=== PATIENT | female | born 1980 | race Caucasian/White ===

== ENCOUNTER → 2016-10-29 | Outpatient (CLI) | payer OTHER ==
[~2016-10-29] MED LIST: AMLO-114 PO; HYDR25TA5 PO; LEVO25TA5 PO; LISI40TA PO; METH500T37 PO; METO25TA56 PO; METO50TA16 PO; NORE-38 PO; OMEP40CA PO; OXYC-57 PO; RANI300T2 PO; TRIA0.1L TOP
--- NOTE | 2016-10-29 11:26 | DIAGNOSTIC IMAGING REPORT ---
ULTRASOUND OF THE CAROTID ARTERIES CLINICAL HISTORY: Pulsatile tinnitus. Headache. Hypertension. COMPARISON STUDY: No priors. TECHNIQUE: Real-time, grayscale, and color Doppler sonography of the carotid arteries is performed. Images are reviewed in the transverse and longitudinal planes. FINDINGS: The carotid arteries are patent bilaterally and demonstrate antegrade flow. There is no significant atherosclerotic plaque identified. Normal doppler arterial waveforms are seen throughout. Velocity measurements are listed below. Common carotid peak systolic velocity (cm/sec): RIGHT: 88 LEFT: 104 ICA proximal peak systolic velocity (cm/sec): RIGHT: 63 LEFT: 89 ICA mid peak systolic velocity (cm/sec): RIGHT: 94 LEFT: 52 ICA distal peak systolic velocity (cm/sec): RIGHT: 59 LEFT: 66 ICA/CC peak systolic ratio: RIGHT: 0.9 LEFT: 0.9 Antegrade flow was shown in the vertebral arteries. The external carotid arteries are patent. IMPRESSION: 1. There is no sonographic evidence of hemodynamically significant stenosis in the right or left carotid arterial system. 2. Antegrade flow is shown in the vertebral arteries. Electronically signed by: Jos Albrecht M.D. 10/29/2016 11:25 AM Dictated Date/Time: 10/29/2016 11:23 AM
== END | disposition home or self-care (01) ==
LOC: C.ULTR 10:30
PROVIDERS: ATTEND Family Medicine
DX: G43.909 Migraine, unspecified, not intractable, without status migrainosus (principal); H93.A9 Pulsatile tinnitus, unspecified ear; I10 Essential (primary) hypertension

== ENCOUNTER → 2016-12-03 | Outpatient (CLI) | payer OTHER ==
--- NOTE | 2016-12-13 08:34 | CODING QUERY NO DIAGNOSIS ---
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 Please assist us with providing a diagnosis/symptom for the test(s) below: A diagnosis/symptom was not documented on your Order. A valid diagnosis/symptom is required to bill all insurances. Please remember that we are unable to code a diagnosis of rule out, probable, possible, questionable, or suspected. DOS 12/03/16 Tests that require a diagnosis: * MAGNESIUM DIAGNOSIS: Provider Signature: Date: Thank you Yuliya Phan [employer] Once completed, please kindly fax back to [phone] For questions please call [phone]
== END | disposition home or self-care (01) ==
LOC: C.LAB 10:57
PROVIDERS: ATTEND Family Medicine
DX: I10 Essential (primary) hypertension (principal)

== ENCOUNTER → 2016-12-25 | Day surgery (SDC) | payer OTHER ==
[2016-12-03 11:04] VITALS: BMI 44.0
--- NOTE | 2016-12-03 11:31 | PAT Medication Instructions ---
Service Date Dec 03, 2016. Current Home Medication List Amlodipine (Norvasc), 10 MG PO QAM Ethinyl Estradiol/Norethindr (Loestrin 1.5/30-21 1.5-30 mg-Mcg), 1 TAB PO QAM Hydrochlorothiazide (Hydrochlorothiazide), 1 TAB PO QAM Levothyroxine Sodium (Levothyroxine Sodium), 1 TAB PO QAM Lisinopril (Zestril), 40 MG PO QAM Omeprazole (Prilosec), 40 MG PO QAM Ranitidine Hcl (Zantac), 1 TAB PO HS Triamcinolone Acet 0.1% (Kenelog 0.1%), TOP BID PRN for ECZEMA Medication Instructions For Your Scheduled Surgery - Hold the following medications 24 hours prior to surgery: Triamcinolone Acet 0.1% (Kenelog 0.1%), TOP BID PRN for ECZEMA - Hold the following medications the morning of surgery: Lisinopril (Zestril), 40 MG PO QAM Hydrochlorothiazide (Hydrochlorothiazide), 1 TAB PO QAM - Take the following medications the morning of surgery with a sip of water OTHERWISE NOTHING TO EAT OR DRINK AFTER MIDNIGHT: Omeprazole (Prilosec), 40 MG PO QAM Amlodipine (Norvasc), 10 MG PO QAM Levothyroxine Sodium (Levothyroxine Sodium), 1 TAB PO QAM Ethinyl Estradiol/Norethindr (Loestrin 1.5/30-21 1.5-30 mg-Mcg), 1 TAB PO QAM - Take the following medications as scheduled the night before surgery: Ranitidine Hcl (Zantac), 1 TAB PO HS If you have any questions please call us at [phone] or [phone] or [phone]
--- NOTE | 2016-12-03 12:03 | DIAGNOSTIC IMAGING REPORT ---
CHEST PREADMISSION(PA/LAT) CLINICAL HISTORY: Preoperative chest COMPARISON STUDY: No previous studies for comparison. FINDINGS: The cardiac and mediastinal contours are normal. There is no evidence of focal pulmonary consolidation. There is no evidence of failure. No pleural effusions are visualized.[ IMPRESSION: No active disease in the chest. Electronically signed by: Bryon Epps M.D. 12/03/2016 12:01 PM Dictated Date/Time: 12/03/2016 12:01 PM
[2016-12-03 12:10] LABS: BASO % 0.5 %; BASO ABS # 0.04 K/uL (0-0.2); COMPLETE YES; EOS % 1.3 %; HEMATOCRIT 37.8 % (37-47); IG% 0.1 %; LYMPH ABS # 1.72 K/uL (1.2-3.4); MEAN CELL VOLUME 87.7 fL (80-100); MEAN CORPUSCULAR HEMOGLOBIN 31.3 pg (25-34); MEAN CORPUSCULAR HGB CONC 35.7 g/dl (32-36); MEAN PLATELET VOLUME 9.8 fL (7.4-10.4); MONO % 7.3 %; NEUT % 69.8 %; PLATELET COUNT 258 K/uL (130-400); RED BLOOD COUNT 4.31 M/uL (4.2-5.4); WHITE BLOOD COUNT 8.21 K/uL (4.8-10.8)
[2016-12-03 12:33] LABS: BUN/CREATININE RATIO 18.5 (10-20); CALCIUM 9.2 mg/dl (8.5-10.1); CREATININE 0.86 mg/dl (0.60-1.20); POTASSIUM 4.1 mmol/L (3.5-5.1)
[~2016-12-25] VITALS: Ht 175.3 cm; Wt 133.4 kg
[~2016-12-25] MED LIST changes: +ACETAMINOPHEN 1000 MG/100 ML IV IV ONE; +ATROPINE SULFATE 0.1 MG/ML 5ML SYR IV PRN; +CEFAZOLIN SOD 1 GM VIAL ONE; +CONRAY 60% 50 ML VIAL ONE; +DEXAMETHASONE SOD INJ 4 MG/ML VIAL ONE; +EpHEDrine SULFATE INJ 50 MG/ML AMP IV PRN; +FENTANYL CITRATE INJ 50 MCG/1 ML 2 ML VIAL ONE; +GLYCOPYRROLATE INJ 0.2 MG/ML VIAL ONE; +HYDROmorphone INJ 1 MG/ML SYR IV PRN; +HYDROmorphone INJ 1 MG/ML SYR ONE; +HYDROmorphone INJ 2 MG/ML SYR/VIAL ONE; +LACTATED RINGER'S 1000ML 1,000 ML IV SCH; +LIDOCAINE HCL 2% 2 ML VIAL (20MG/ML) ONE; +LIDOCAINE/EPINEPHRINE 1% 20 ML VIAL ONE; -METH500T37 PO; -METO25TA56 PO; -METO50TA16 PO; +MIDAZOLAM HCL 1 MG/ML 2ML VIAL ONE; +MoRPHine SULFATE 4 MG/ML 1 ML CARP\\VIAL IV PRN; +NEOSTIGMINE METHYLSULFATE 5 MG/5 ML SYR ONE; +ONDANSETRON INJ 2 MG/ML 2 ML VIAL IV PRN; +ONDANSETRON INJ 2 MG/ML 2 ML VIAL ONE; +OXYCODONE/ACETAMINOPHEN 5-325 TAB PO PRN; +PROPOFOL IV EMULSION 10 MG/ML 20 ML VIAL IV ONE; +ROCURONIUM BROMIDE 10 MG/ML 5 ML VIAL ONE
--- NOTE | 2016-12-25 08:19 | Discharge Instructions ---
Discharge Instructions Date of Service Dec 25, 2016. Visit Reason for Visit: Right Upper Quadrant Abdominal Pain Discharge Discharge Diagnosis / Problem: Laparoscopic cholecystectomy Discharge Goals Goal(s): Decrease discomfort Activity Recommendations Activity Limitations: as noted below Lifting Limitations: no more than 10 pounds Shower/Bathe: tomorrow Driving or Machine Use: resume 3 days after discharge (if not taking percocet) Anesthesia . Post Anesthesia Instructions: If you have had General Anesthesia or IV Sedation: * Do not drive today. * Resume driving when surgeon permits. * Do not make important decisions or sign legal documents today. * Call surgeon for: 1. Temperature elevations greater than 101 degrees F. 2. Uncontrollable pain. 3. Excessive bleeding. 4. Persistent nausea and vomiting. 5. Medication intolerance (nausea, vomiting or rash). * For nausea and vomiting use only clear liquids such as: tea, soda, bouillon until nausea subsides, then gradually increase diet as tolerated. * If you have any concerns or questions, call your surgeon's office. If physician is unavailable and it is an emergency, call 911 or go to the nearest emergency room. . Instructions / Follow-Up Instructions / Follow-Up Dr. Rust in 1 week, call [phone] if you do not already have an appt or for any questions Diet Recommendations Recommended Home Diet: no limitations Pending Studies Studies pending at discharge: no Medical Emergencies . Who to Call and When: Medical Emergencies: If at any time you feel your situation is an emergency, please call 911 immediately. . Non-Emergent Contact Non-Emergency issues call your: Surgeon Call Non-Emergent contact if: you have a fever, temperature is above 101.5, your pain is not controlled, wound has increased redness . . "Provider Documentation" section prepared by Andrea Cole.
[2016-12-25 09:55] VITALS: BP 123/90; PULSE 82; TEMP 36.8; O2SAT 96; Ht 175.3 cm; Wt 133.4 kg
--- NOTE | 2016-12-25 10:46 | History & Physical Bridge Note ---
H&P Re-Evaluation Bridge Note: pt no change family at bedsideI have examined the patient, reviewed the History & Physical and in the interval since the performance of the History & Physical I have noted the following changes of clinical significance: No changes noted
--- NOTE | 2016-12-25 12:12 | [facility] Post Operative Brief Note ---
Immediate Operative Summary Operative Date Dec 25, 2016. 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 gallbladder Complication(s) poor picture quality and scissors to open cystic duct not sharp
--- NOTE | 2016-12-25 12:18 | DIAGNOSTIC IMAGING REPORT ---
CHOLANGIOGRAM O.R. CLINICAL HISTORY: Cholecystectomy COMPARISON STUDY: CT scan dated 12/15/2015 FLUOROSCOPY TIME: 3 seconds. 2 fluoroscopic spot images were acquired.. FINDINGS: The cystic duct was cannulated and contrast was instilled into the common bile duct. No filling defects are visualized. There is free flow into the duodenum. IMPRESSION: No retained calculi identified. Electronically signed by: Bryon Epps M.D. 12/25/2016 12:17 PM Dictated Date/Time: 12/25/2016 12:16 PM
[2016-12-25] MEDS: FENTANYL CITRATE INJ 50 MCG/1 ML 2 ML VIAL IV PRN ×4 (12:28→12:43)
--- NOTE | 2016-12-25 12:39 | OPERATIVE REPORT ---
DATE OF OPERATION: 12/25/2016 PREOPERATIVE DIAGNOSIS: Chronic cholecystitis. POSTOPERATIVE DIAGNOSIS: Same. PROCEDURE: Laparoscopic cholecystectomy, intraoperative cholangiogram. SURGEON: Dr. Rust. INSTRUCTOR [employer] MANUFACTURE: Leroy Cole PA-C. OPERATION AND FINDINGS: SUMMARY: The patient was brought into the operating room theater. The abdomen was prepped with Betadine solution and properly draped. We made a small transverse incision sufficient enough to place a Veress needle followed by CO2 followed by 5 mm trocar. Point of entry inspected and no injury identified. At this point, we were able to see that throughout the procedure the camera was not good quality, there was a haziness throughout that could not define details sufficiently and multiple tried remedies did not sufficiently work. At this point, under direct visualization, we placed a 5 mm epigastric, two 5 mm subcostal ports with preemptive local analgesia 1% Xylocaine. The gallbladder was placed under traction. At this point we started dissecting out the gallbladder neck, identified a structure that was inferior typical where the cystic duct was and going into the gallbladder. At this point, we clipped it proximally. A small opening was made in the structure thinking it was the cystic duct. The scissors that we normally use to open up the cystic duct were not sharp. We could not make a small opening, we used a larger scissors and cut into this and had some bleeding from the artery as it turned out to be. Therefore we controlled this, we doubly clipped proximally and divided it and then we dissected out down into the triangle of Calot and was able to identify the cystic duct which was more posterior and superior to the cystic artery, clipped it proximally. A small opening in the cystic duct was made. A #4 ureteral catheter traversed the abdominal wall and a 14 Angiocath was placed in the cystic duct. Serial x-rays were taken, showed no obstruction of the common bile duct. Free flow into the duodenum. The cholangiocath was removed and the cystic duct was doubly clipped and divided. Gallbladder was placed under traction. We took it out even the posterior peritoneum and the liver. Prior to completing this, we checked the [place] hepatis to make sure hemostasis was satisfactory which it was. I suctioned out inferior and superior to the liver, placed the gallbladder in an Endopouch and taken out intact through the epigastric port. I did open it and looked like typical cholesterolosis of the gallbladder. The patient was placed flat, rotated to the right, slight Trendelenburg. We irrigated the suprahepatic area where some of the blood had escaped. We probably had about 50 mL of blood loss when we controlled the cystic artery. I placed a camera in subcostal port to visualize the umbilical opening. There were no adhesions identified there. At this point individual trocars removed, last umbilical trocar. Wounds were closed with 4-0 Monocryl. Steri-Strips applied. The procedure was tolerated well by the patient and was taken to recovery room in good condition. I attest to the content of the Intraoperative Record and any orders documented therein. Any exceptions are noted below. MTDD
--- NOTE | 2016-12-25 12:42 | Medical Student: [facility] ---
Immediate Operative Summary Operative Date Dec 25, 2016. Pre-Operative Diagnosis Chronic cholecystitis Post-Operative Diagnosis Same as above Procedure(s) Performed Laparascopic cholecystectomy with cholangiogram Surgeon Dr. Rust Erecting Crane Operator Surgeon(s) Andrea De Oliveira PA-C Estimated Blood Loss 50 mL Specimens Gallbladder Drains None Anesthesia Endotracheal intubation Complication(s) None Disposition Recovery Room / PACU
--- NOTE | 2016-12-25 13:09 | Anesthesiology Progress Note ---
Anesthesia Post Op Note Date & Time Dec 25, 2016 at 13:08 Vital Signs Pain Intensity: 9 Vital Signs Past 12 Hours Date Time Temp Pulse Resp B/P Pulse Ox O2 Delivery O2 Flow Rate FiO2 12/25/16 12:55 79 13 130/73 97 12/25/16 12:55 80 13 12/25/16 12:50 77 21 116/86 98 12/25/16 12:50 78 21 12/25/16 12:45 82 25 12/25/16 12:45 82 25 134/83 99 12/25/16 12:40 79 23 136/82 98 12/25/16 12:40 81 23 12/25/16 12:35 88 10 160/86 95 12/25/16 12:35 87 10 12/25/16 12:30 88 19 132/76 93 12/25/16 12:30 89 19 12/25/16 12:25 94 16 12/25/16 12:25 36.4 96 18 137/92 92 Mask 10 12/25/16 12:25 97 16 137/92 92 12/25/16 09:55 36.8 82 16 123/90 96 Room Air Notes Mental Status: alert / awake / arousable, participated in evaluation Pt Amnestic to Procedure: Yes Nausea / Vomiting: adequately controlled Pain: improving with treatment Airway Patency, RR, SpO2: stable & adequate BP & HR: stable & adequate Hydration State: stable & adequate Anesthetic Complications: no major complications apparent Patient continues to improve with starting dilaudid. At time of evaluation, stated pain is now tolerable.
[2016-12-25 14:17] VITALS: BP 119/68; PULSE 98; TEMP 36.8; O2SAT 95
[2016-12-25 14:45] VITALS: BP 122/78; PULSE 94; O2SAT 95
[2016-12-25 15:15] VITALS: BP 120/85; PULSE 87; TEMP 36.7; O2SAT 94
== END | disposition home or self-care (01) ==
LOC: C.ACU 09:25
PROVIDERS: ATTEND Surgery
DX: K81.1 Chronic cholecystitis (principal); I10 Essential (primary) hypertension; E03.9 Hypothyroidism, unspecified; Z79.899 Other long term (current) drug therapy; Z86.32 Personal history of gestational diabetes; Z68.41 Body mass index [BMI] 40.0-44.9, adult; E66.01 Morbid (severe) obesity due to excess calories; Z79.3 Long term (current) use of hormonal contraceptives; Z80.8 Family history of malignant neoplasm of other organs or systems; Z83.3 Family history of diabetes mellitus; Z82.49 Family history of ischemic heart disease and other diseases of the circulatory system; Z80.42 Family history of malignant neoplasm of prostate

== ENCOUNTER → 2017-01-02 | Outpatient (CLI) | payer OTHER ==
[~2017-01-02] MED LIST changes: -ACETAMINOPHEN 1000 MG/100 ML IV IV ONE; -ATROPINE SULFATE 0.1 MG/ML 5ML SYR IV PRN; -CEFAZOLIN SOD 1 GM VIAL ONE; -CONRAY 60% 50 ML VIAL ONE; -DEXAMETHASONE SOD INJ 4 MG/ML VIAL ONE; -EpHEDrine SULFATE INJ 50 MG/ML AMP IV PRN; -FENTANYL CITRATE INJ 50 MCG/1 ML 2 ML VIAL ONE; +GADAVIST IV PRN; -GLYCOPYRROLATE INJ 0.2 MG/ML VIAL ONE; -HYDROmorphone INJ 1 MG/ML SYR IV PRN; -HYDROmorphone INJ 1 MG/ML SYR ONE; -HYDROmorphone INJ 2 MG/ML SYR/VIAL ONE; -LACTATED RINGER'S 1000ML 1,000 ML IV SCH; -LIDOCAINE HCL 2% 2 ML VIAL (20MG/ML) ONE; -LIDOCAINE/EPINEPHRINE 1% 20 ML VIAL ONE; -MIDAZOLAM HCL 1 MG/ML 2ML VIAL ONE; -MoRPHine SULFATE 4 MG/ML 1 ML CARP\\VIAL IV PRN; -NEOSTIGMINE METHYLSULFATE 5 MG/5 ML SYR ONE; -ONDANSETRON INJ 2 MG/ML 2 ML VIAL IV PRN; -ONDANSETRON INJ 2 MG/ML 2 ML VIAL ONE; -OXYCODONE/ACETAMINOPHEN 5-325 TAB PO PRN; -PROPOFOL IV EMULSION 10 MG/ML 20 ML VIAL IV ONE; -ROCURONIUM BROMIDE 10 MG/ML 5 ML VIAL ONE
--- NOTE | 2017-01-02 09:47 | DIAGNOSTIC IMAGING REPORT ---
MR ANGIOGRAPHY OF THE [place] NO CONTRAST CLINICAL HISTORY: Pulsatile tinnitus COMPARISON STUDY: None. A 3-D [id number] MR angiographic sequence of the [place] was performed. Both the source and projection images were reviewed. There is no evidence of major intracranial branch occlusion. There is no evidence of intracranial stenosis. There are no lesions suspicious for aneurysm. There is a dominant right vertebral artery. 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 No vascular malformations are visualized. IMPRESSION: Unremarkable MR angiography of the [place]. Electronically signed by: Bryon Epps M.D. 01/02/2017 9:46 AM Dictated Date/Time: 01/02/2017 9:35 AM
--- NOTE | 2017-01-02 10:39 | DIAGNOSTIC IMAGING REPORT ---
MRI brain BRAIN COMBO FOR IAC CLINICAL HISTORY: PULSATILE TINNITUS mental status change TECHNIQUE: Multiaxial MRI acquisition COMPARISON STUDY: None FINDINGS: Signal characteristics of the cerebellar as well as cerebral hemispheres are unremarkable. There is single focus of increased signal superior left parietal convexity cortical image 14. Postcontrast images are negative for an enhancing lesion. Internal auditory canals are symmetric. There is no evidence for abnormal postcontrast enhancement. Ventricular system is midline. IMPRESSION: 1. Small focus of increased signal left parietal convexity. 2. This is nonspecific for age. 3. This study is otherwise entirely normal with no evidence for abnormality of the internal auditory canals Electronically signed by: Luiz Powers M.D. 01/02/2017 10:37 AM Dictated Date/Time: 01/02/2017 10:31 AM
== END | disposition home or self-care (01) ==
LOC: C.MRI 08:54
PROVIDERS: ATTEND Physician Assistant
DX: H93.A9 Pulsatile tinnitus, unspecified ear (principal)

== ENCOUNTER → 2017-05-27 | Outpatient (CLI) | payer OTHER ==
[~2017-05-27] MED LIST changes: -GADAVIST IV PRN
[2017-05-27 18:09] LABS: BLOOD UREA NITROGEN 13 mg/dl (7-18); BUN/CREATININE RATIO 15.6 (10-20); CALCIUM 8.9 mg/dl (8.5-10.1); CARBON DIOXIDE 30 mmol/L (21-32); CHLORIDE 106 mmol/L (98-107); CREATININE 0.82 mg/dl (0.60-1.20); GLUCOSE 97 mg/dl (70-99); POTASSIUM 4.1 mmol/L (3.5-5.1); SODIUM 140 mmol/L (136-145)
== END | disposition home or self-care (01) ==
LOC: C.LABPBG 10:48
PROVIDERS: ATTEND Family Medicine
DX: I10 Essential (primary) hypertension (principal); E03.9 Hypothyroidism, unspecified

== ENCOUNTER → 2018-02-06 | Outpatient (CLI) | payer OTHER ==
[~2018-02-06] MED LIST changes: -OXYC-57 PO
[2018-02-06 13:06] LABS: BASO % 0.3 %; BASO ABS # 0.02 K/uL (0-0.2); EOS % 2.4 %; EOS ABS # 0.17 K/uL (0-0.5); HEMOGLOBIN 14.4 g/dL (12.0-16.0); IG# 0.01 K/uL (0.00-0.02); LYMPH % 23.5 %; LYMPH ABS # 1.69 K/uL (1.2-3.4); MEAN CELL VOLUME 90.9 fL (80-100); MEAN CORPUSCULAR HEMOGLOBIN 31.2 pg (25-34); MEAN CORPUSCULAR HGB CONC 34.3 g/dl (32-36); MEAN PLATELET VOLUME 10.2 fL (7.4-10.4); MONO % 6.5 %; MONO ABS # 0.47 K/uL (0.11-0.59); NEUT % 67.2 %; NEUT ABS # 4.84 K/uL (1.4-6.5); PLATELET COUNT 282 K/uL (130-400); RED CELL DISTRIBUTION WIDTH CV 12.7 % (11.5-14.5); RED CELL DISTRIBUTION WIDTH SD 42.4 fL (36.4-46.3)
[2018-02-06 16:53] LABS: BLOOD UREA NITROGEN 11 mg/dl (7-18); CALCIUM 8.6 mg/dl (8.5-10.1); CARBON DIOXIDE 30 mmol/L (21-32); CREATININE 0.93 mg/dl (0.60-1.20); GLUCOSE 92 mg/dl (70-99); POTASSIUM 3.6 mmol/L (3.5-5.1); SODIUM 140 mmol/L (136-145)
== END | disposition home or self-care (01) ==
LOC: C.LABPBG 10:41
PROVIDERS: ATTEND Family Medicine
DX: R53.83 Other fatigue (principal)

== ENCOUNTER → 2018-05-09 | Outpatient (CLI) | payer OTHER ==
[~2018-05-09] MED LIST changes: -AMLO-114 PO; +AMLO10TA3 PO
--- NOTE | 2018-05-09 08:23 | DIAGNOSTIC IMAGING REPORT ---
ABDOMEN AND PELVIS CT WITHOUT CONTRAST CT DOSE: 1716.58 mGy.cm HISTORY: Right flank pain. ABDOMINAL PAIN,KIDNEY STONE TECHNIQUE: Multiaxial CT images of the abdomen and pelvis were performed without contrast. A dose lowering technique was utilized adhering to the principles of ALARA. COMPARISON STUDY: Abdomen and pelvis CT 12/15/2015. FINDINGS: The lung bases are clear. No pneumoperitoneum. No pneumatosis. Severe facet osteoarthritis at L4-5. Hepatic steatosis. The unenhanced spleen, adrenal glands, pancreas, and kidneys are unremarkable. No renal or ureteral calculi. No hydronephrosis. Cholecystectomy. No retroperitoneal lymphadenopathy. Duplicated right-sided IVC. The bladder is unremarkable. The uterus and bilateral adnexa are within normal limits. Suboptimal evaluation for bowel pathology due to the lack of intravenous and oral contrast. However, there is no definite bowel wall thickening or obstruction. Normal appendix. IMPRESSION: 1. No renal or ureteral calculi. No hydronephrosis. 2. No definite bowel wall thickening or obstruction. 3. Normal appendix. 4. Cholecystectomy. 5. Hepatic steatosis. Electronically signed by: Wild Nava M.D. 05/09/2018 8:21 AM Dictated Date/Time: 05/09/2018 8:11 AM
== END | disposition home or self-care (01) ==
LOC: C.CTS 07:56
PROVIDERS: ATTEND Family Medicine
DX: N20.0 Calculus of kidney (principal); K76.0 Fatty (change of) liver, not elsewhere classified